=== PATIENT | male | born 1955 | race African-American/Black ===

== ENCOUNTER 2017-04-15 12:57 | Emergency (ER) | payer BC ==
[~2017-04-15] VITALS: Ht 185.4 cm; Wt 103.5 kg
[2017-04-15 13:49] LABS: ADD MIUA? YES; BILIRUBIN NEGATIVE; BLOOD NEGATIVE; COLOR YELLOW ((YELLOW)); GLUCOSE (STRIP) 50; KETONES NEGATIVE; LEUKOCYTES TRACE; NITRITE NEGATIVE; PROTEIN (STRIP) NEGATIVE; SPECIFIC GRAVITY 1.015 (1.000-1.030); UROBILINOGEN 0.2 MG/DL (0.2-1.0)
[2017-04-15 13:51] LABS: BACTERIA RARE /HPF; EPITHELIAL CELLS RARE /HPF; MUCUS NONE SEEN /LPF; RED BLOOD CELLS 0-5 /HPF (0-5); WHITE BLOOD CELLS 0-5 /HPF (0-5)
[2017-04-15 14:25] LABS: EOSINOPHIL (%) 1.6 % (0-5); EOSINOPHIL COUNT 0.1 K/uL (0-0.3); HEMATOCRIT 41.7 % (38.0-50.0); IMMATURE GRANULOCYTE (%) 0.3 % (0.0-0.7); INSTRUMENT ABS NEUTROPHIL CT 2.5 K/uL; MCH 27.1 PG (29.0-34.0); MCHC 33.8 G/DL (30.0-36.0); MEAN PLAT.VOLUME 10.3 uM^3 (9.0-12.4); MONOCYTE COUNT 0.3 K/uL (0-0.8); NEUTROPHIL (%) 65.9 % (45-76); NEUTROPHIL COUNT 2.5 K/uL (1.8-6.4); PLATELET COUNT 153 K/uL (156-360); RBC DIS.WIDTH-CV 13.1 % (11.8-14.6); RBC DIS.WIDTH-SD 37.8 % (39-53); RED BLOOD COUNT 5.21 M/uL (4.00-5.50); WHITE BLOOD COUNT 3.9 K/uL (4.1-10.2)
[2017-04-15 14:37] LABS: CHLORIDE 105 mEq/L (99-109); POTASSIUM 4.6 mEq/L (3.7-5.4); SODIUM 136 mEq/L (136-147)
[2017-04-15 14:39] LABS: GLUCOSE 268 mg/dL (70-99)
[2017-04-15 14:40] LABS: ANION GAP 10 MEQ/L (2-14)
[2017-04-15 14:41] LABS: TOTAL BILIRUBIN 0.3 mg/dL (0.0-1.0)
[2017-04-15 14:42] LABS: ALKALINE PHOSPHATASE 75 IU/L (3-129)
[2017-04-15 14:43] LABS: GFR ESTIMATE (CALCULATED) > 59 mL/min/
[2017-04-15 14:44] LABS: UREA NITROGEN (BUN) 19 mg/dL (9-23)
[2017-04-15 14:46] LABS: LIPASE 67 U/L (1.0-51.0)
[2017-04-15 15:30] VITALS: BP 151/82
[2017-04-15] MEDS ORDERED: ULTRAM50 MG PO (15:30)
== END 2017-04-15 15:49 | disposition home or self-care (01) ==
LOC: EME 12:57
PROVIDERS: Physician Assistant
DX: R10.31 Right lower quadrant pain (principal)
CPT/HCPCS: 74176; 80053; 81003; 83690; 85025; 99281; 99283

== ENCOUNTER 2017-05-07 18:46 | Inpatient (IN) | payer BC ==
[~2017-05-07] VITALS: Ht 185.4 cm; Wt 87.7 kg
[~2017-05-07 18:46] MED LIST: ULTRAM50 MG PO
[2017-05-07 20:02] LABS: HEMATOCRIT 43.4 % (38.0-50.0); MCH 27.1 PG (29.0-34.0); MCHC 33.9 G/DL (30.0-36.0); MCV 79.9 FL (86-99); MEAN PLAT.VOLUME 10.5 uM^3 (9.0-12.4); PLATELET COUNT 193 K/uL (156-360); RBC DIS.WIDTH-CV 13.2 % (11.8-14.6); RBC DIS.WIDTH-SD 37.5 % (39-53); RED BLOOD COUNT 5.43 M/uL (4.00-5.50); WHITE BLOOD COUNT 6.6 K/uL (4.1-10.2)
[2017-05-07 20:23] LABS: CHLORIDE 97 mEq/L (99-109); POTASSIUM 5.4 mEq/L (3.7-5.4); SODIUM 135 mEq/L (136-147)
[2017-05-07 20:26] LABS: ANION GAP 12 MEQ/L (2-14)
[2017-05-07 20:27] LABS: TOTAL BILIRUBIN 0.3 mg/dL (0.0-1.0)
[2017-05-07 20:28] LABS: ALKALINE PHOSPHATASE 103 IU/L (3-129)
[2017-05-07 20:29] LABS: GFR ESTIMATE (CALCULATED) 57 mL/min/
[2017-05-07 20:30] LABS: UREA NITROGEN (BUN) 16 mg/dL (9-23)
[2017-05-07 20:36] LABS: GLUCOSE 415 mg/dL (70-99)
[2017-05-07 21:36] LABS: C-REACTIVE PROTEIN 58.9 MG/L (0-10)
[2017-05-07 22:46] LABS: POINT-OF-CARE METER ID UU13113702
[2017-05-08] MEDS ORDERED: DOXYCYCLINE HY100 M3 PO (01:34)
[2017-05-08] MEDS ORDERED: FLONASE16 G1 BOTH NARES (01:35)
[2017-05-08] MEDS ORDERED: GABAPENTIN300 MG PO (01:36)
[2017-05-08] MEDS ORDERED: HYDROCHLOROTHIA25 MG PO (01:37)
[2017-05-08] MEDS ORDERED: LANTUS 10100 UNITS/ SC (01:40)
[2017-05-08] MEDS ORDERED: METFORMIN HCL850 MG PO (01:41)
[2017-05-08] MEDS ORDERED: HYDROXYZINE PAM50 MG PO (01:41)
[2017-05-08] MEDS ORDERED: LISINOPRIL40 MG PO (01:42)
[2017-05-08] MEDS ORDERED: TRAZODONE HCL50 MG PO (01:42)
[2017-05-08] MEDS ORDERED: LISINOPRIL30 MG PO (01:43)
[2017-05-08] MEDS ORDERED: OXYCODONE HCL15 MG PO (01:44)
[2017-05-08 02:59] VITALS: BP 140/77
[2017-05-08 05:44] LABS: POINT-OF-CARE METER ID UU13113774
[2017-05-08 07:51] VITALS: BP 132/76
[2017-05-08 11:23] VITALS: BP 132/78
[2017-05-08 11:42] LABS: POINT-OF-CARE METER ID UU13113774
[2017-05-08 15:33] VITALS: BP 137/76
[2017-05-08 15:33] LABS: POINT-OF-CARE METER ID UU13113725
[2017-05-08 19:50] VITALS: BP 148/82
[2017-05-08 20:57] LABS: POINT-OF-CARE METER ID UU13113725
[2017-05-08 23:15] VITALS: BP 140/77
[2017-05-09 03:38] VITALS: BP 138/82
[2017-05-09 05:57] LABS: POINT-OF-CARE METER ID UU13113725
[2017-05-09 06:12] LABS: EOSINOPHIL (%) 1.9 % (0-5); EOSINOPHIL COUNT 0.1 K/uL (0-0.3); HEMATOCRIT 36.3 % (38.0-50.0); IMMATURE GRANULOCYTE (%) 0.7 % (0.0-0.7); INSTRUMENT ABS NEUTROPHIL CT 2.2 K/uL; LYMPHOCYTE COUNT 1.3 K/uL (1.0-2.8); MCH 27.6 PG (29.0-34.0); MCHC 33.9 G/DL (30.0-36.0); MCV 81.4 FL (86-99); MEAN PLAT.VOLUME 10.2 uM^3 (9.0-12.4); MONOCYTE (%) 11.4 % (3-12); MONOCYTE COUNT 0.5 K/uL (0-0.8); NEUTROPHIL (%) 54.4 % (45-76); NEUTROPHIL COUNT 2.2 K/uL (1.8-6.4); PLATELET COUNT 141 K/uL (156-360); RBC DIS.WIDTH-SD 38.5 % (39-53); RED BLOOD COUNT 4.46 M/uL (4.00-5.50); WHITE BLOOD COUNT 4.1 K/uL (4.1-10.2)
[2017-05-09 06:31] LABS: ANION GAP 5 MEQ/L (2-14); CHLORIDE 101 MEQ/L (99-109); GFR ESTIMATE (CALCULATED) 53 mL/min/; GLUCOSE 253 mg/dL (70-99); POTASSIUM 4.7 MEQ/L (3.7-5.4); SAMPLE HEMOLYSIS CHECK 0; SAMPLE ICTERIC CHECK 0; SAMPLE LIPEMIA CHECK 0; SODIUM 135 MEQ/L (136-147)
[2017-05-09 06:36] LABS: UREA NITROGEN (BUN) 26 mg/dL (9-23)
[2017-05-09 07:30] VITALS: BP 124/70
[2017-05-09 09:04] LABS: Estimated Average Glucose 108 mg/dL (70-123); HEMOGLOBIN A1c (GLYCOHEMOGLOB) 5.4 % HGB (Below 5.7)
[2017-05-09 11:05] LABS: POINT-OF-CARE METER ID UU13113774
[2017-05-09 11:11] VITALS: BP 141/70
[2017-05-09 15:59] VITALS: BP 169/96
[2017-05-09 16:02] LABS: POINT-OF-CARE METER ID UU13113774
[2017-05-09 18:56] VITALS: BP 123/74
[2017-05-09 21:19] LABS: POINT-OF-CARE METER ID UU13113725
[2017-05-09 22:46] VITALS: BP 106/59
[2017-05-10 03:40] VITALS: BP 117/65
[2017-05-10 06:02] LABS: EOSINOPHIL (%) 1.9 % (0-5); EOSINOPHIL COUNT 0.1 K/uL (0-0.3); HEMATOCRIT 36.2 % (38.0-50.0); IMMATURE GRANULOCYTE (%) 0.6 % (0.0-0.7); INSTRUMENT ABS NEUTROPHIL CT 1.9 K/uL; LYMPHOCYTE COUNT 1.2 K/uL (1.0-2.8); MCH 28.1 PG (29.0-34.0); MCHC 34.8 G/DL (30.0-36.0); MCV 80.8 FL (86-99); MEAN PLAT.VOLUME 10.1 uM^3 (9.0-12.4); MONOCYTE (%) 12.7 % (3-12); MONOCYTE COUNT 0.5 K/uL (0-0.8); NEUTROPHIL (%) 51.9 % (45-76); NEUTROPHIL COUNT 1.9 K/uL (1.8-6.4); PLATELET COUNT 150 K/uL (156-360); RBC DIS.WIDTH-CV 12.8 % (11.8-14.6); RBC DIS.WIDTH-SD 37.2 % (39-53); RED BLOOD COUNT 4.48 M/uL (4.00-5.50); WHITE BLOOD COUNT 3.6 K/uL (4.1-10.2)
[2017-05-10 06:04] LABS: POINT-OF-CARE METER ID UU13113725
[2017-05-10 06:20] LABS: ANION GAP 7 MEQ/L (2-14); CHLORIDE 100 MEQ/L (99-109); GFR ESTIMATE (CALCULATED) > 59 mL/min/; GLUCOSE 302 mg/dL (70-99); POTASSIUM 4.5 MEQ/L (3.7-5.4); SAMPLE HEMOLYSIS CHECK 0; SAMPLE ICTERIC CHECK 0; SAMPLE LIPEMIA CHECK 0; SODIUM 132 MEQ/L (136-147); UREA NITROGEN (BUN) 26 mg/dL (9-23)
[2017-05-10 08:22] VITALS: BP 115/62
[2017-05-10 11:44] LABS: POINT-OF-CARE METER ID UU13113725
[2017-05-10 15:26] VITALS: BP 138/76
[2017-05-10 16:17] LABS: POINT-OF-CARE METER ID UU13113725
[2017-05-10 20:59] LABS: POINT-OF-CARE METER ID UU13113725
[2017-05-10 23:48] VITALS: BP 121/75
[2017-05-11 06:04] LABS: POINT-OF-CARE METER ID UU13113725
[2017-05-11 06:36] LABS: ANION GAP 8 MEQ/L (2-14); CHLORIDE 101 MEQ/L (99-109); GFR ESTIMATE (CALCULATED) > 59 mL/min/; POTASSIUM 4.9 MEQ/L (3.7-5.4); SAMPLE HEMOLYSIS CHECK 0; SAMPLE ICTERIC CHECK 0; SAMPLE LIPEMIA CHECK 0; SODIUM 132 MEQ/L (136-147); UREA NITROGEN (BUN) 29 mg/dL (9-23)
[2017-05-11 06:39] LABS: GLUCOSE 416 mg/dL (70-99)
[2017-05-11 07:26] VITALS: BP 109/64
[2017-05-11 12:03] LABS: POINT-OF-CARE METER ID UU13113725
[2017-05-11 15:20] VITALS: BP 129/87
[2017-05-11 15:54] LABS: POINT-OF-CARE METER ID UU13113725
[2017-05-11 21:27] LABS: POINT-OF-CARE METER ID UU13113725
[2017-05-11 23:34] VITALS: BP 102/52
[2017-05-12 06:09] LABS: EOSINOPHIL (%) 1.6 % (0-5); EOSINOPHIL COUNT 0.1 K/uL (0-0.3); HEMATOCRIT 38.1 % (38.0-50.0); IMMATURE GRANULOCYTE (%) 0.5 % (0.0-0.7); INSTRUMENT ABS NEUTROPHIL CT 2.4 K/uL; LYMPHOCYTE COUNT 1.2 K/uL (1.0-2.8); MCH 26.6 PG (29.0-34.0); MCHC 33.6 G/DL (30.0-36.0); MCV 79.2 FL (86-99); MEAN PLAT.VOLUME 10.7 uM^3 (9.0-12.4); MONOCYTE (%) 14.6 % (3-12); MONOCYTE COUNT 0.6 K/uL (0-0.8); NEUTROPHIL (%) 54.6 % (45-76); NEUTROPHIL COUNT 2.4 K/uL (1.8-6.4); PLATELET COUNT 155 K/uL (156-360); RBC DIS.WIDTH-CV 12.6 % (11.8-14.6); RED BLOOD COUNT 4.81 M/uL (4.00-5.50); WHITE BLOOD COUNT 4.4 K/uL (4.1-10.2)
[2017-05-12 06:33] LABS: ANION GAP 9 MEQ/L (2-14); CHLORIDE 101 MEQ/L (99-109); GFR ESTIMATE (CALCULATED) > 59 mL/min/; GLUCOSE 372 mg/dL (70-99); POTASSIUM 4.9 MEQ/L (3.7-5.4); SAMPLE HEMOLYSIS CHECK 0; SAMPLE ICTERIC CHECK 0; SAMPLE LIPEMIA CHECK 0; SODIUM 134 MEQ/L (136-147); UREA NITROGEN (BUN) 29 mg/dL (9-23)
[2017-05-12 07:28] VITALS: BP 107/64
[2017-05-12 09:28] LABS: POINT-OF-CARE METER ID UU13113675
[2017-05-12 09:53] LABS: Estimated Average Glucose 203 mg/dL (70-123)
[2017-05-12 09:57] LABS: HEMOGLOBIN A1c (GLYCOHEMOGLOB) 8.7 % HGB (Below 5.7)
[2017-05-12 11:00] VITALS: BP 121/70
[2017-05-12 11:35] LABS: POINT-OF-CARE METER ID UU13113725
[2017-05-12 15:38] VITALS: BP 129/76
[2017-05-12 16:15] LABS: POINT-OF-CARE METER ID UU13113725
[2017-05-12 21:22] LABS: POINT-OF-CARE METER ID UU13113774
[2017-05-12 23:33] VITALS: BP 124/70
[2017-05-13 05:24] LABS: EOSINOPHIL (%) 1.2 % (0-5); EOSINOPHIL COUNT 0.1 K/uL (0-0.3); HEMATOCRIT 36.2 % (38.0-50.0); IMMATURE GRANULOCYTE (%) 0.3 % (0.0-0.7); INSTRUMENT ABS NEUTROPHIL CT 3.9 K/uL; LYMPHOCYTE COUNT 1.3 K/uL (1.0-2.8); MCH 27.1 PG (29.0-34.0); MCV 79.7 FL (86-99); MEAN PLAT.VOLUME 10.2 uM^3 (9.0-12.4); MONOCYTE (%) 11.9 % (3-12); MONOCYTE COUNT 0.7 K/uL (0-0.8); NEUTROPHIL (%) 64.7 % (45-76); NEUTROPHIL COUNT 3.9 K/uL (1.8-6.4); PLATELET COUNT 142 K/uL (156-360); RBC DIS.WIDTH-CV 12.9 % (11.8-14.6); RED BLOOD COUNT 4.54 M/uL (4.00-5.50)
[2017-05-13 06:10] LABS: ANION GAP 8 MEQ/L (2-14); CHLORIDE 102 MEQ/L (99-109); GFR ESTIMATE (CALCULATED) > 59 mL/min/; POTASSIUM 5.4 MEQ/L (3.7-5.4); SAMPLE HEMOLYSIS CHECK 0; SAMPLE ICTERIC CHECK 0; SAMPLE LIPEMIA CHECK 0; SODIUM 132 MEQ/L (136-147); UREA NITROGEN (BUN) 28 mg/dL (9-23)
[2017-05-13 06:14] LABS: GLUCOSE 444 mg/dL (70-99)
[2017-05-13 07:20] VITALS: BP 116/57
[2017-05-13 11:46] LABS: POINT-OF-CARE METER ID UU13113725
[2017-05-13 16:19] LABS: POINT-OF-CARE METER ID UU13113774
[2017-05-13 16:38] VITALS: BP 139/69
[2017-05-13 21:09] LABS: POINT-OF-CARE METER ID UU13113725
[2017-05-13 21:17] LABS: POINT-OF-CARE METER ID UU13113774
[2017-05-13 21:17] LABS: POINT-OF-CARE METER ID UU13113774
[2017-05-13 21:22] LABS: POINT-OF-CARE METER ID UU13113774
[2017-05-13 23:54] VITALS: BP 115/65
[2017-05-14 06:01] LABS: POINT-OF-CARE METER ID UU13113725
[2017-05-14 06:40] LABS: EOSINOPHIL (%) 1.7 % (0-5); EOSINOPHIL COUNT 0.1 K/uL (0-0.3); HEMATOCRIT 34.9 % (38.0-50.0); IMMATURE GRANULOCYTE (%) 0.6 % (0.0-0.7); INSTRUMENT ABS NEUTROPHIL CT 2.8 K/uL; LYMPHOCYTE COUNT 1.2 K/uL (1.0-2.8); MCH 27.8 PG (29.0-34.0); MCHC 34.7 G/DL (30.0-36.0); MEAN PLAT.VOLUME 10.6 uM^3 (9.0-12.4); MONOCYTE (%) 13.1 % (3-12); MONOCYTE COUNT 0.6 K/uL (0-0.8); NEUTROPHIL (%) 58.8 % (45-76); NEUTROPHIL COUNT 2.8 K/uL (1.8-6.4); PLATELET COUNT 134 K/uL (156-360); RBC DIS.WIDTH-CV 12.9 % (11.8-14.6); RBC DIS.WIDTH-SD 36.9 % (39-53); RED BLOOD COUNT 4.36 M/uL (4.00-5.50); WHITE BLOOD COUNT 4.8 K/uL (4.1-10.2)
[2017-05-14 07:03] LABS: ANION GAP 7 MEQ/L (2-14); CHLORIDE 103 MEQ/L (99-109); GFR ESTIMATE (CALCULATED) > 59 mL/min/; GLUCOSE 325 mg/dL (70-99); POTASSIUM 4.7 MEQ/L (3.7-5.4); SAMPLE HEMOLYSIS CHECK 0; SAMPLE ICTERIC CHECK 0; SAMPLE LIPEMIA CHECK 0; SODIUM 134 MEQ/L (136-147); UREA NITROGEN (BUN) 25 mg/dL (9-23)
[2017-05-14 07:27] VITALS: BP 122/71
[2017-05-14 11:55] LABS: POINT-OF-CARE METER ID UU13113725
[2017-05-14] MEDS ORDERED: DURICEF1 GM PO (13:17)
[2017-05-14] MEDS ORDERED: LEVEMIR100 UNIT/2 SC (13:17)
[2017-05-14 15:42] VITALS: BP 129/75
[2017-05-14 16:11] LABS: POINT-OF-CARE METER ID UU13113725
[2017-05-14 21:19] LABS: POINT-OF-CARE METER ID UU13113725
[2017-05-15 05:46] LABS: POINT-OF-CARE METER ID UU13113774
[2017-05-15 06:40] VITALS: BP 118/65
[2017-05-15 09:55] VITALS: BP 118/65
[2017-05-15 11:28] LABS: POINT-OF-CARE METER ID UU13113725
[2017-05-15] MEDS ORDERED: NOVOLOG PE100 UNITS/ SC (14:13)
== END 2017-05-15 17:14 | disposition home health service (06) | DRG 617 ==
LOC: EME 18:46 → EDOF 05-08 00:46 → 5EAST 05-08 00:46 → ENRESERV 05-08 00:47 → 5EAST 05-08 02:29
PROVIDERS: Hospitalist; Physician Assistant
PROC: 0Y6P0Z3 Detachment at Right 1st Toe, Low, Open Approach (ICD-10-PCS; principal; 2017-05-12)
DX: E11.69 Type 2 diabetes mellitus with other specified complication (principal); M86.671 Other chronic osteomyelitis, right ankle and foot; E11.22 Type 2 diabetes mellitus with diabetic chronic kidney disease; N18.3 Chronic kidney disease, stage 3 (moderate); I12.9 Hypertensive chronic kidney disease with stage 1 through stage 4 chronic kidney disease, or unspecified chronic kidney disease; L97.519 Non-pressure chronic ulcer of other part of right foot with unspecified severity; E11.621 Type 2 diabetes mellitus with foot ulcer; E11.42 Type 2 diabetes mellitus with diabetic polyneuropathy; E11.65 Type 2 diabetes mellitus with hyperglycemia; Z91.19 Patient's noncompliance with other medical treatment and regimen; Z91.11 Patient's noncompliance with dietary regimen; Z79.4 Long term (current) use of insulin; L84 Corns and callosities; M20.41 Other hammer toe(s) (acquired), right foot; E11.628 Type 2 diabetes mellitus with other skin complications
CPT/HCPCS: 73660; 76770; 80048; 80053; 80202; 82948; 83036; 83605; 85025; 85027; 86140; 87040; 87070; 87075; 87076; 87205; 88305; 88311; 99281; 99285; J0295; J0690; J0696; J1170; J1650; J1815; J2250; J2270; J2405; J2543; J3010; J3370; J7030; J7050; Q0177; S0020

== ENCOUNTER 2017-06-30 19:43 | Inpatient (IN) | payer BC ==
[~2017-06-30] VITALS: Ht 185.4 cm; Wt 99.2 kg
[~2017-06-30 19:43] MED LIST changes: +DOXYCYCLINE HY100 M3 PO; +DURICEF1 GM PO; +FLONASE16 G1 BOTH NARES; +GABAPENTIN800 MG PO; +HYDROCHLOROTHIA25 MG PO; +HYDROXYZINE PAM50 MG PO; +LANTUS 10100 UNITS/ SC; +LEVEMIR100 UNIT/2 SC; +LISINOPRIL40 MG PO; +METFORMIN HCL850 MG PO; +NOVOLOG PE100 UNITS/ SC; +OXYCODONE HCL15 MG PO; +TRAZODONE HCL50 MG PO
[2017-06-30 21:01] LABS: HEMATOCRIT 38.9 % (38.0-50.0); HEMOGLOBIN 13.5 G/DL (12.5-16.6); MCH 27.7 PG (29.0-34.0); MCHC 34.7 G/DL (30.0-36.0); MCV 79.7 FL (86-99); PLATELET COUNT 165 K/uL (156-360); RBC DIS.WIDTH-CV 13.1 % (11.8-14.6); RBC DIS.WIDTH-SD 37.7 % (39-53); RED BLOOD COUNT 4.88 M/uL (4.00-5.50); WHITE BLOOD COUNT 8.2 K/uL (4.1-10.2)
[2017-06-30 21:11] LABS: ALBUMIN 4.1 g/dL (3.2-4.8)
[2017-06-30 21:12] LABS: CHLORIDE 107 mEq/L (99-109); SODIUM 133 mEq/L (136-147)
[2017-06-30 21:14] LABS: GLUCOSE 306 mg/dL (70-99); TOTAL PROTEIN 7.3 g/dL (6.4-8.3)
[2017-06-30 21:16] LABS: TOTAL BILIRUBIN 0.2 mg/dL (0.0-1.0)
[2017-06-30 21:17] LABS: ALKALINE PHOSPHATASE 83 IU/L (3-129)
[2017-06-30 21:18] LABS: CREATININE 1.9 mg/dL (0.6-1.3); GFR ESTIMATE (CALCULATED) 46 mL/min/ (58.99-99999)
[2017-06-30 21:19] LABS: AST (GOT) 11 IU/L (2-34); UREA NITROGEN (BUN) 34 mg/dL (9-23)
[2017-06-30 21:20] LABS: ALT (GPT) 12 IU/L (3-49)
[2017-06-30] MEDS ORDERED: DESYREL 150 MG150 MG PO (23:01)
[2017-06-30] MEDS ORDERED: BACTRIM,SEPT1 TABLET PO (23:01)
[2017-06-30] MEDS ORDERED: AMOX TR-K CLV1 EAC4 PO (23:02)
[2017-06-30] MEDS ORDERED: TAMSULOSIN HCL0.4 MG PO (23:03)
[2017-06-30] MEDS ORDERED: METFORMIN HCL850 MG PO (23:07)
[2017-07-01 03:45] VITALS: BP 135/80
[2017-07-01 08:23] VITALS: BP 115/67
[2017-07-01 11:40] VITALS: BP 123/70
[2017-07-01 16:20] VITALS: BP 127/72
[2017-07-01 23:29] VITALS: BP 131/69
[2017-07-02 04:10] VITALS: BP 98/54
[2017-07-02 06:49] LABS: BASOPHIL (%) 0.8 % (0-1); EOSINOPHIL (%) 2.5 % (0-5); EOSINOPHIL COUNT 0.1 K/uL (0-0.3); HEMATOCRIT 34.4 % (38.0-50.0); HEMOGLOBIN 11.7 G/DL (12.5-16.6); IMMATURE GRANULOCYTE (%) 0.3 % (0.0-0.7); LYMPHOCYTE (%) 33.7 % (15-42); LYMPHOCYTE COUNT 1.2 K/uL (1.0-2.8); MCH 27.7 PG (29.0-34.0); MCV 81.5 FL (86-99); MONOCYTE (%) 10.4 % (3-12); MONOCYTE COUNT 0.4 K/uL (0-0.8); NEUTROPHIL (%) 52.3 % (45-76); NEUTROPHIL COUNT 1.9 K/uL (1.8-6.4); PLATELET COUNT 146 K/uL (156-360); RBC DIS.WIDTH-CV 13.5 % (11.8-14.6); RBC DIS.WIDTH-SD 39.8 % (39-53); RED BLOOD COUNT 4.22 M/uL (4.00-5.50); WHITE BLOOD COUNT 3.7 K/uL (4.1-10.2)
[2017-07-02 07:06] LABS: C-REACTIVE PROTEIN 12.5 MG/L (0-10); CHLORIDE 110 MEQ/L (99-109); CREATININE 1.5 MG/DL (0.6-1.3); GFR ESTIMATE (CALCULATED) > 59 mL/min/ (58.99-99999); POTASSIUM 4.2 MEQ/L (3.7-5.4); SODIUM 137 MEQ/L (136-147); UREA NITROGEN (BUN) 23 mg/dL (9-23)
[2017-07-02 07:09] LABS: GLUCOSE 116 mg/dL (70-99)
[2017-07-02 08:36] VITALS: BP 105/59
[2017-07-02 09:09] LABS: ERTH.SED.RATE 19 MM/HR (0-20)
[2017-07-02 11:54] VITALS: BP 116/64
[2017-07-02 16:27] VITALS: BP 126/60
[2017-07-02 20:30] VITALS: BP 150/70
[2017-07-03 00:04] VITALS: BP 117/59
[2017-07-03 03:52] VITALS: BP 120/60
[2017-07-03 08:30] VITALS: BP 125/76
[2017-07-03 16:47] VITALS: BP 126/77
[2017-07-04 00:16] VITALS: BP 138/77
[2017-07-04 06:53] LABS: BASOPHIL (%) 0.7 % (0-1); EOSINOPHIL COUNT 0.1 K/uL (0-0.3); HEMATOCRIT 33.8 % (38.0-50.0); HEMOGLOBIN 11.4 G/DL (12.5-16.6); IMMATURE GRANULOCYTE (%) 0.4 % (0.0-0.7); LYMPHOCYTE (%) 40.9 % (15-42); LYMPHOCYTE COUNT 1.1 K/uL (1.0-2.8); MCH 27.3 PG (29.0-34.0); MCHC 33.7 G/DL (30.0-36.0); MCV 81.1 FL (86-99); MONOCYTE (%) 11.2 % (3-12); MONOCYTE COUNT 0.3 K/uL (0-0.8); NEUTROPHIL (%) 43.8 % (45-76); NEUTROPHIL COUNT 1.2 K/uL (1.8-6.4); PLATELET COUNT 147 K/uL (156-360); RBC DIS.WIDTH-CV 13.2 % (11.8-14.6); RBC DIS.WIDTH-SD 38.8 % (39-53); RED BLOOD COUNT 4.17 M/uL (4.00-5.50); WHITE BLOOD COUNT 2.7 K/uL (4.1-10.2)
[2017-07-04 07:33] VITALS: BP 132/72
[2017-07-04 07:44] LABS: CHLORIDE 110 MEQ/L (99-109); CREATININE 1.3 MG/DL (0.6-1.3); GFR ESTIMATE (CALCULATED) > 59 mL/min/ (58.99-99999); POTASSIUM 4.4 MEQ/L (3.7-5.4); SODIUM 138 MEQ/L (136-147); UREA NITROGEN (BUN) 19 mg/dL (9-23)
[2017-07-04 07:47] LABS: GLUCOSE 218 mg/dL (70-99)
[2017-07-04 15:51] VITALS: BP 143/83
[2017-07-04 23:28] VITALS: BP 136/78
[2017-07-05 06:12] LABS: BASOPHIL (%) 0.5 % (0-1); EOSINOPHIL (%) 2.1 % (0-5); EOSINOPHIL COUNT 0.1 K/uL (0-0.3); HEMATOCRIT 35.2 % (38.0-50.0); HEMOGLOBIN 11.8 G/DL (12.5-16.6); IMMATURE GRANULOCYTE (%) 0.2 % (0.0-0.7); LYMPHOCYTE (%) 27.9 % (15-42); LYMPHOCYTE COUNT 1.2 K/uL (1.0-2.8); MCH 26.8 PG (29.0-34.0); MCHC 33.5 G/DL (30.0-36.0); MONOCYTE (%) 9.6 % (3-12); MONOCYTE COUNT 0.4 K/uL (0-0.8); NEUTROPHIL (%) 59.7 % (45-76); NEUTROPHIL COUNT 2.5 K/uL (1.8-6.4); PLATELET COUNT 164 K/uL (156-360); RBC DIS.WIDTH-CV 12.8 % (11.8-14.6); RBC DIS.WIDTH-SD 37.1 % (39-53); WHITE BLOOD COUNT 4.3 K/uL (4.1-10.2)
[2017-07-05 06:34] LABS: CHLORIDE 106 MEQ/L (99-109); CREATININE 1.6 MG/DL (0.6-1.3); GFR ESTIMATE (CALCULATED) 57 mL/min/ (58.99-99999); GLUCOSE 205 mg/dL (70-99); POTASSIUM 4.1 MEQ/L (3.7-5.4); SODIUM 136 MEQ/L (136-147); UREA NITROGEN (BUN) 22 mg/dL (9-23)
[2017-07-05 07:25] VITALS: BP 118/63
[2017-07-05] MEDS ORDERED: AMOX TR-K CLV1 EAC4 PO (12:21)
[2017-07-05] MEDS ORDERED: HYDROCODON-ACE1 EAC7 PO (12:23)
== END 2017-07-05 14:11 | disposition home or self-care (01) | DRG 638 ==
LOC: EME 19:43 → 4SOUTH 07-01 01:52 → EDOF 07-01 01:52 → ENRESERV 07-01 01:53 → 4SOUTH 07-01 03:41
PROVIDERS: Hospitalist; Internal Medicine; Physician Assistant
DX: E11.628 Type 2 diabetes mellitus with other skin complications (principal); L02.611 Cutaneous abscess of right foot; L03.031 Cellulitis of right toe; N17.9 Acute kidney failure, unspecified; E11.621 Type 2 diabetes mellitus with foot ulcer; L97.519 Non-pressure chronic ulcer of other part of right foot with unspecified severity; E11.65 Type 2 diabetes mellitus with hyperglycemia; E11.42 Type 2 diabetes mellitus with diabetic polyneuropathy; I12.9 Hypertensive chronic kidney disease with stage 1 through stage 4 chronic kidney disease, or unspecified chronic kidney disease; N18.1 Chronic kidney disease, stage 1; E11.22 Type 2 diabetes mellitus with diabetic chronic kidney disease; B19.20 Unspecified viral hepatitis C without hepatic coma; B35.1 Tinea unguium; Z79.4 Long term (current) use of insulin; Z89.411 Acquired absence of right great toe
CPT/HCPCS: 73630; 80048; 80053; 80202; 82565; 82948; 83605; 85025; 85027; 85651; 86140; 87040; 87070; 87075; 87205; 99281; 99285; J0696; J1650; J1815; J2270; J2543; J3370; J7030; J7050; Q0177